=== PATIENT | female | born 1950 | race Asian ===

== ENCOUNTER 2018-12-06 08:34 | Emergency (ER) | payer OTHER ==
[2018-12-06 08:43] VITALS: TEMP 97.9; BMI 23.0
[2018-12-06] MEDS ORDERED: DIPHTH,PERTUSS(ACELL),TET 0.5 ML DISP.SYRIN IM ONE ×2 (09:43→09:51)
--- NOTE | 2018-12-06 10:30 | PDOC ---
History of Present Illness - General Chief Complaint: Syncope/Near Syncope Stated Complaint: SYNCOPE Time Seen by Provider: 12/06/18 09:05 History Source: Patient, Spouse ( present at bedside. ) Exam Limitations: No Limitations - History of Present Illness Initial Comments: HPI: 68 y/o female presenting to [facility] ER via private auto from Dr. Cortez office with 24g IV in place. Pre-arrival notification received from Dr. Castaneda, who requested head CT and laceration repair. Will accept the pt back to the clinic if head CT is unremarkable. Pt reports passing out this morning after completing her colonoscopy prep. She finished having a bowel movement, stood quickly from the toilet, and then passed out. Struck the back of her head on the shower door. Immediately stood up. alerted pt to bleeding from back of head. Controlled with direct pressure. Pt denies nausea/vomiting, headache, change in vision, neck pain, or retrograde/anterograde amnesia. reports his was acting normally afterward. PCP: Dr. Jennyfer Cesar GI: Dr. Castaneda Medical Hx: - HTN, on HCTZ - H/o Ovarian CA s/p total hysterectomy Review of Systems: In addition to that documented in the HPI above, the additional ROS was obtained : Constitutional: Denies fevers or chills Head: Per HPI ENMT: Denies sore throat CV: Denies chest pain Resp: Denies SOB GI: Denies vomiting or diarrhea : Denies painful urination MSK: Denies recent trauma Skin: Denies new rashes Neuro: Denies new numbness or tingling or weakness Endocrine: Denies polyuria Heme: Denies bleeding or bruising Physical Examination: Constitutional: Well-developed, well-nourished adult female in no acute distress or obvious discomfort. Appearing younger than stated age. Found semi- fowlers on hospital bed. Alert and oriented x4. Answered all questions appropriately and completely. Speech was non-labored, non-pressured. Head: Normocephalic. Approx. 4mm partial thickness linear laceration to right posterior occiput; trace blood oozing. No Battles sign or Raccoon eyes. Eyes: Pupils 3mm and PERRL bilaterally. Sclerae white. Conjunctiva moist and not injected. Ears: Hearing grossly intact. Nose: No nasal discharge. Neck: Supple, trachea is midline. No JVD or thyromegaly. Cardiovascular / Chest: Regular rate and regular rhythm. No murmur, rubs, clicks , or gallops. Peripheral pulses: radial pulses full. Respiratory: Breathing unlabored. Equal chest rise and fall. Clear to auscultation bilaterally. No stridor, no wheezing, no rhonchi. Neuro: Alert and oriented. Moving all four extremities spontaneously. No focal deficits. Cranial nerves intact. Sensation to all four extremities intact. Upper and lower extremities: proximal and distal strength 5/5. Physical Ther strength 5/ 5 - equal and symmetric. Plantar flexion and dorsiflexion 5/5. No nuchal rigidity. Skin: Warm and dry. Psych: Affect: appropriate. Mood: normal. Past History - Past Medical History Allergies/Adverse Reactions: Allergies Allergy/AdvReac Type Severity Reaction Status Date / Time Penicillins Allergy Verified 12/06/18 08:41 Home Medications: Ambulatory Orders Hydrochlorothiazide [Hctz -] 25 mg PO DAILY 12/06/18 Cancer: Yes (ovarian 2003) COPD: No - Suicide/Smoking/Psychosocial Hx Smoking History: Never smoked *Physical Exam - Vital Signs Last Vital Signs Temp Pulse Resp BP Pulse Ox 97.9 F 79 16 132/72 99 12/06/18 08:41 12/06/18 08:41 12/06/18 08:41 12/06/18 08:41 12/06/18 08:41 ED Treatment Course - RADIOLOGY Radiology Studies Ordered: Category Date Time Status HEAD CT WITHOUT CONTRAST [CT] Stat CT Scan 12/06/18 09:09 Ordered - Medications Given in the ED: ED Medications Discontinued Medications Generic Name Dose Route Start Last Admin Trade Name Freq PRN Reason Stop Dose Admin Diphtheria/Tetanus/Acell Pertussis 0.5 ml 12/06/18 09:43 12/06/18 09:54 Boostrix - IM 12/06/18 09:44 0.5 ml .ONCE ONE Administration *DC/Admit/Observation/Transfer Diagnosis at time of Disposition: Stapled skin wound Syncope Qualifiers: Syncope type: unspecified Qualified Code(s): R55 - Syncope and collapse Laceration of head Qualifiers: Encounter type: initial encounter Location of open wound of head: scalp Foreign body presence: without foreign body Qualified Code(s): S01.01XA - Laceration without foreign body of scalp, initial encounter - Discharge Dispostion Disposition: HOME Condition at time of disposition: Good Decision to Admit order: No - Referrals Referrals: Jennyfer Cesar MD [Primary Care Provider] - - Patient Instructions Printed Discharge Instructions: DI for Syncope in Adults (Fainting), DI for Laceration Repair -- [place] Additional Instructions: You were seen today for a laceration to your head after passing out this morning. You likely passed out from dehydration and a vasovagal episode. Your Head CT did not show any acute injury. 8x colt were used to close the laceration to the back of your head. You also received a Tetanus shot booster and an IV fluid bolus. You can take over the counter Tylenol or Advil as needed for pain. Take as directed on the package insert. Do not exceed the recommended dosage. The colt will need to be removed in the next 5-6 days. Follow up with your primary care doctor to have them removed. You can also return to the emergency department. Go to the nearest emergency department if your condition worsens, you develop signs of an infection, or you feel like you need additional emergency evaluation. Print Language: HAITIAN - Post Discharge Activity
[2018-12-06] MEDS ORDERED: LACTATED RINGERS SOLUTION 1000 ML INFUS.BAG IV ONE (10:37)
--- NOTE | 2018-12-06 10:40 | PDOC ---
Attending Attestation - Resident Resident Name: RaiCharles - ED Attending Attestation I have performed the following: I have examined & evaluated the patient, The case was reviewed & discussed with the resident, I agree w/resident's findings & plan - HPI HPI: 12/06/18 10:35 68 YOF with h/o HTN presenting with syncopal episode while getting up from toilet today after administering enema. s/p bowel prep for colonoscopy today. sent in from Dr Castaneda's office for eval of fall/syncope +occipital scalp laceration, some bleeding tdap unclear no garcia/dizziness, neck pain, back pain, cp, sob. AP, vomiting +bowel prep and diarrhea. 12/06/18 11:51 - Physicial Exam PE: 12/06/18 11:51 Agree with the resident's HPI and PE as documented in the electronic medical record. NAD, well appearing, PERRL, EOMI, nl conjunctiva, anicteric; no c spine tenderness. neck supple. lungs clear, RRR, no murmur, abdomen soft nontender. YOUNG x4, no focal neuro deficits. No peripheral edema. normal color for ethnicity , WWP. - Medical Decision Making 12/06/18 10:36 hpi as documented VS reviewed, wnl, normotensive. neuro intact. well appearing, no complaints except scalp lac on occiput. secondary survey unremarkable, +scalp lac tdap updated CT head neg for acute pathology/bleed. episode of vasovagal syncope in the setting of hypovolemia 2/2 bowel prep. IVF given, s/p 500cc fluids en route from GI office additional 500cc fluids given here through IV no cp or sob, doubt cardiogenic or neurogenic, no SZ/AMS or neuro deficits well appearing now. ambulatory, gait stable. scalp lac by resident, colt in placed. bleeding controlled removal in [address] Castaneda office for colonoscopy. communicated with Dr Castaneda with ED eval and stable discharge. 12/06/18 11:52 12/06/18 11:54
[2018-12-06 12:23] VITALS: BP 148/93; PULSE 82
== END 2018-12-06 12:09 | disposition home or self-care (01) ==
LOC: JER 08:34
PROC: 0HQ0XZZ Repair Scalp Skin, External Approach (ICD-10-PCS; principal; 2018-12-06)
PROC: 3E0234Z Introduction of Serum, Toxoid and Vaccine into Muscle, Percutaneous Approach (ICD-10-PCS; 2018-12-06)
DX: R55 Syncope and collapse (principal); E86.1 Hypovolemia; S01.01XA Laceration without foreign body of scalp, initial encounter; W01.198A Fall on same level from slipping, tripping and stumbling with subsequent striking against other object, initial encounter; Y93.E8 Activity, other personal hygiene; Y92.012 Bathroom of single-family (private) house as the place of occurrence of the external cause; I10 Essential (primary) hypertension; Z85.43 Personal history of malignant neoplasm of ovary; Z90.710 Acquired absence of both cervix and uterus; Z90.79 Acquired absence of other genital organ(s); Z90.722 Acquired absence of ovaries, bilateral
CPT/HCPCS: 12001-25; 70450-TC; 90471; 90715; 99281-25